=== PATIENT | male | born 1945 | race Caucasian/White ===

== ENCOUNTER → 2017-04-13 07:38 | Day surgery (SDC) | payer MEDICARE, OTHER ==
[~2017-04-13 07:38] MED LIST: Acetaminophen TAB* 325 MG PO PRN; Buffered Lidocaine 0.9% SYRIN* 5 ML/SYR SYRINGE INTRADERM ONE; Cyclopentolate 1% OPTH.SOL* 2 ML BTL ONE; Ketorolac 0.5% OPHTH (NF) 0.5 % 5 ML BTL ONE; Lidocaine 1% MPF* 2 ML VIAL ONE; Lidocaine 2% EPI 1:200000 MPF* 20 ML VIAL ONE; Midazolam* 1 MG/ML 2 ML VIAL (2 MG) ONE; Neomycin/Polymy/Dex OPTH.SUSP* MAXITROL 0.1% 5 ML ONE; Phenylephrine 2.5% OPTH.SOL* 2 ML BTL ONE; Povidone Iodine 5% OPTH* 30 ML BTL ONE; Proparacaine 0.5% OPHTH.SOL* 15 ML BTL ONE; acetaZOLAMIDE TAB* 250 MG ONE
[2017-04-13 10:27] VITALS: BP 141/67
--- NOTE | 2017-04-13 15:30 | OP ---
DATE OF OPERATION: 04/13/2017 - [facility] DATE OF : 1945. SURGEON: Lino Elkins M.D. PREOPERATIVE DIAGNOSIS: Cataract right eye. POSTOPERATIVE DIAGNOSIS: Cataract right eye. OPERATIVE PROCEDURE: Extracapsular cataract extraction with intraocular lens implant right eye. DESCRIPTION OF PROCEDURE: The patient was brought to the operating room after being given 1/2% Alcaine with epinephrine drops in the preoperative area. The eye was prepped and draped in the usual sterile fashion. Sterile drape and eyelid speculum were placed. Again, topical 1/2% Alcaine with epinephrine was given. A paracentesis incision was made at the 9 o'clock position with the No.75 blade. Clear cornea incision 2.2 x 2.2-mm was created at the 12 o'clock position starting at the anterior limbus using the 2.2-mm keratome. The anterior chamber was irrigated with 0.4 mL of 1% non-preservative intracameral lidocaine and filled with DisCoVisc. A capsulorrhexis was completed using the cystotome and the Utrata forceps. Hydrodissection was performed with balanced salt solution. The lens nucleus was removed with the Phacoemulsification handpiece without incident. Cortex was removed with the irrigation-aspiration handpiece. The capsular bag was re-inflated using DisCoVisc and an [id number] implant was inserted with the shooter. The irrigation-aspiration handpiece was used to remove all residual DisCoVisc. The eye was refilled with balanced salt solution and the wound checked and found to be watertight. Topical Maxitrol drops were given. [id number]/[facility] #: [id number] [facility]ENTER[facility]
== END | disposition home or self-care (01) ==
LOC: OREAST 07:38
PROVIDERS: ATTEND Specialist
DX: H25.811 Combined forms of age-related cataract, right eye (principal); H40.053 Ocular hypertension, bilateral; E11.3293 Type 2 diabetes mellitus with mild nonproliferative diabetic retinopathy without macular edema, bilateral; Z79.84 Long term (current) use of oral hypoglycemic drugs; I10 Essential (primary) hypertension
CPT/HCPCS: A9270-GY; J2250; V2632

== ENCOUNTER 2017-04-20 06:23 | Day surgery (SDC) | payer MEDICARE, OTHER ==
[~2017-04-20 06:23] MED LIST changes: -Cyclopentolate 1% OPTH.SOL* 2 ML BTL ONE; -Ketorolac 0.5% OPHTH (NF) 0.5 % 5 ML BTL ONE; -Lidocaine 1% MPF* 2 ML VIAL ONE; -Lidocaine 2% EPI 1:200000 MPF* 20 ML VIAL ONE; -Midazolam* 1 MG/ML 2 ML VIAL (2 MG) ONE; -Neomycin/Polymy/Dex OPTH.SUSP* MAXITROL 0.1% 5 ML ONE; -Phenylephrine 2.5% OPTH.SOL* 2 ML BTL ONE; -Povidone Iodine 5% OPTH* 30 ML BTL ONE; -Proparacaine 0.5% OPHTH.SOL* 15 ML BTL ONE; -acetaZOLAMIDE TAB* 250 MG ONE
[2017-04-20] MEDS ORDERED: Midazolam* 1 MG/ML 2 ML VIAL (2 MG) ONE ×2 (07:14→07:37)
[2017-04-20] MEDS ORDERED: Ketorolac 0.5% OPHTH (NF) 0.5 % 5 ML BTL ONE (07:32)
[2017-04-20] MEDS ORDERED: Povidone Iodine 5% OPTH* 30 ML BTL ONE (07:32)
[2017-04-20] MEDS ORDERED: Lidocaine 2% EPI 1:200000 MPF* 20 ML VIAL ONE (07:32)
[2017-04-20] MEDS ORDERED: Proparacaine 0.5% OPHTH.SOL* 15 ML BTL ONE (07:32)
[2017-04-20] MEDS ORDERED: Lidocaine 1% MPF* 2 ML VIAL ONE (07:32)
[2017-04-20] MEDS ORDERED: acetaZOLAMIDE TAB* 250 MG ONE (07:32)
[2017-04-20] MEDS ORDERED: Neomycin/Polymy/Dex OPTH.SUSP* MAXITROL 0.1% 5 ML ONE (07:32)
[2017-04-20] MEDS ORDERED: Cyclopentolate 1% OPTH.SOL* 2 ML BTL ONE (07:32)
[2017-04-20] MEDS ORDERED: Phenylephrine 2.5% OPTH.SOL* 2 ML BTL ONE (07:32)
[2017-04-20 07:56] VITALS: BP 134/57
--- NOTE | 2017-04-20 22:48 | OP ---
DATE OF OPERATION: 04/20/17 [facility] DATE OF : [birth year] SURGEON: Lino Elkins M.D. PREOPERATIVE DIAGNOSIS: Cataract, left eye. POSTOPERATIVE DIAGNOSIS: Cataract, left eye. OPERATIVE PROCEDURE: Extracapsular cataract extraction with intraocular lens implant, left eye. DESCRIPTION OF PROCEDURE: The patient was brought to the operating room after being given 1/2% Alcaine with epinephrine drops in the preoperative area. The eye was prepped and draped in the usual sterile fashion. Sterile drape and eyelid speculum were placed. Again, topical 1/2% Alcaine with epinephrine was given. A paracentesis incision was made at the 3 o'clock position with the No.75 blade. Clear cornea incision 2.2 x 2.2-mm was created at the 6 o'clock position starting at the anterior limbus using the 2.2-mm keratome. The anterior chamber was irrigated with 0.4 mL of 1% non-preservative intracameral lidocaine and filled with DisCoVisc. A capsulorrhexis was completed using the cystotome and the Utrata forceps. Hydrodissection was performed with balanced salt solution. The lens nucleus was removed with the Phacoemulsification handpiece without incident. Cortex was removed with the irrigation-aspiration handpiece. The capsular bag was re-inflated using DisCoVisc and an [id number] 16.5 implant was inserted with the shooter. The irrigation-aspiration handpiece was used to remove all residual DisCoVisc. The eye was refilled with balanced salt solution and the wound checked and found to be watertight. Topical Maxitrol drops were given. [id number]/[facility] #: [id number] [facility]
== END 2017-04-20 08:10 | disposition home or self-care (01) ==
LOC: OREAST 06:23
PROVIDERS: ATTEND Specialist
DX: H25.812 Combined forms of age-related cataract, left eye (principal); H40.053 Ocular hypertension, bilateral; E11.3293 Type 2 diabetes mellitus with mild nonproliferative diabetic retinopathy without macular edema, bilateral; N40.0 Benign prostatic hyperplasia without lower urinary tract symptoms; I10 Essential (primary) hypertension; Z79.84 Long term (current) use of oral hypoglycemic drugs; E78.5 Hyperlipidemia, unspecified
CPT/HCPCS: A9270-GY; J2250; V2632

== ENCOUNTER 2019-02-28 20:06 | Emergency (ER) | payer MEDICARE, OTHER ==
[2019-02-28] MEDS ORDERED: Lidocaine/Epineph/Tetraca SOL 4 ML BTL (LET solution) TOPICAL ONE (20:43)
[2019-02-28] MEDS ORDERED: Tetan/Diph/Pertus SYR(Tdap)* 0.5 ML SYR(BOOSTRIX) use SYR contains LATEX IM ONE (20:48)
[2019-02-28] MEDS ORDERED: Lidocaine 1% MPF ** 5 ML VIAL INJ ONE (20:48)
--- NOTE | 2019-02-28 20:51 | UC ---
HPI Wound/Suture Re-check - HPI Summary HPI Summary: PATIENT TRIPPED AND FELL AROUND NOON TODAY (8 HOURS AGO) STRIKING THE TOP OF HIS HEAD ON THE PORCH. SUSTAINED LACERATION TO THE TOP RIGHT OF HIS SCALP. WENT TO THE ER IN [place] AND HAD 8 SHAHIDA PLACED TO THE LACERATION. HE STATES THAT IT HAS BEEN OOZING AND BLOOD HAS BEEN RUNNING DOWN HIS CHEEK ALL DAY. HE DENIES ANY LOC. NO NAUSEA/VOMITING. NO VISUAL DISTURBANCES. NO DIZZINESS OR HEADACHE. HE TAKES AN 81 MG ASPIRIN DAILY. NO OTHER BLOOD THINNERS. UNKNOWN DATE OF LAST TETANUS. DID NOT RECEIVE ONE IN THE [place] ER. PT REPORTS THEY DID A CT SCAN OF HIS HEAD WHICH WAS UNREMARKABLE. - History Of Current Complaint Stated Complaint: HEAD LAC Time Seen by Provider: 02/28/19 20:17 Hx Obtained From: Patient Onset/Duration: Sudden Onset, Lasting Hours, Still Present Severity: Moderate - Allergies/Home Medications Allergies/Adverse Reactions: Allergies Allergy/AdvReac Type Severity Reaction Status Date / Time codeine Allergy Severe Nausea And Verified 02/28/19 21:14 Vomiting Home Medications: Home Medications Latanoprost 0.005%* [Xalatan 0.005%*] 1 drop BOTH EYES QPM 02/28/19 [History Confirmed 02/28/19] PMH/Surg Hx/FS Hx/Imm Hx Endocrine History: Diabetes Cardiovascular History: Hypertension - Surgical History Surgical History: Yes Surgery Procedure, Year, and Place: surgery on nose 2106. abdominal surgery more than 10 years ago - Family History Known Family History: Positive: Non-Contributory - Social History Alcohol Use: None Substance Use Type: None Smoking Status (MU): Never Smoked Tobacco Review of Systems All Other Systems Reviewed And Are Negative: Yes Constitutional: Positive: Negative Skin: Positive: Other - LACERATION Respiratory: Positive: Negative Cardiovascular: Positive: Negative Gastrointestinal: Positive: Negative Neurological: Positive: Negative Physical Exam Triage Information Reviewed: Yes Appearance: Well-Appearing, No Pain Distress, Well-Nourished Vital Signs Reviewed: Yes Eyes: Positive: Conjunctiva Clear ENT: Positive: Hearing grossly normal Neck: Positive: Supple Respiratory: Positive: No respiratory distress, No accessory muscle use Cardiovascular: Positive: Pulses Normal Musculoskeletal: Positive: No Edema Neurological: Positive: Alert Psychological: Positive: Age Appropriate Behavior Skin: Positive: Other - 6.5CM LINEAR LACERATION TOP OF SCALP WITH ACTIVE BLEEDING. 8 SHAHIDA. 1 APPEARS TO HAVE ONE SIDE BURIED WITHIN THE LACERATION. Procedures - Laceration/Wound Repair 1 Location: head - SCALP Description: Linear Anesthesia: Local, 1.0% Length, Depth and Shape: 6.5CM LONG, 3MM DEEP LINEAR LACERATION Betadine Prep?: No Irrigated w/ Saline (ccs): 250 Laceration/Wound Explored: clean Closure: Single Layer - 11 SIMPLE INTERRUPTED SUTURES Suture Type: Prolene - 5-0 Layer Closure?: No Sterile Dressing Applied?: Yes Course/Dx - Course Course Of Treatment: PATIENT ARRIVES ABOUT 8 HOURS AFTER HAVING 8 SHAHIDA PLACED TO A SCALP LACERATION IN THE [place] [facility] ROOM. HE STATES THE WOUND HAS BEEN OOZING AND BLEEDING ALL DAY. AFTER CLEANING THE WOUND IT WAS NOTED THAT ONE OF THE SHAHIDA HAD ONE SIDE BURIED WITHIN THE LACERATION AND THAT THE 2 SURROUNDING SHAHIDA WERE ASYMMETRICALLY PLACED WITH ONE SIDE VERY CLOSE TO THE LACERATION ITSELF. IT WAS ALSO DISCOVERED THAT THE SKIN EDGES WERE SIGNIFICANTLY OVERLAPPING WHICH EXPLAINS WHY HE DID NOT FORM AN ADEQUATE CLOT AND HAS BEEN CONTINUING TO BLEED OVER THE COURSE OF THE DAY. ALL 8 SHAHIDA WERE REMOVED WITHOUT DIFFICULTY. TIME OUT COMPLETE. LACERATION CLOSED WITH 11 SIMPLE INTERRUPTED SUTURES USING 5-0 PROLENE. SKIN EDGES WERE IN GOOD ALIGNMENT. HEMOSTASIS WAS ACHIEVED. STERILE DRESSING APPLIED BY RN. TDAP WAS BOOSTED PATIENT CANNOT REMEMBER THE DATE OF HIS LAST TETANUS SHOT AND HE STATES HE DID NOT GET ONE TODAY IN THE [place] ER. WOUND CARE AND FOLLOW-UP INSTRUCTIONS GIVEN TO THE PATIENT AND HIS NEIGHBOR WHO BROUGHT HIM IN. - Diagnosis Provider Diagnosis: Scalp laceration Discharge ED - Sign-Out/Discharge Documenting (check all that apply): Patient Departure All imaging exams completed and their final reports reviewed: No Studies - Discharge Plan Condition: Stable Disposition: HOME Patient Education Materials: Laceration (ED) Referrals: Jaxon Boone MD [Primary Care Provider] - If Needed Additional Instructions: THE 8 SHAHIDA WERE REMOVED AND YOUR LACERATION WAS CLOSED WITH 11 SUTURES. KEEP DRESSINGS IN PLACE AND DRY FOR THE FIRST 24 HRS. THEN YOU MAY REMOVE THE DRESSING AND GENTLY CLEANSE WITH SOAP AND WATER. PAT DRY AND RE-BANDAGE. APPLY THIN LAYER ANTIBIOTIC OINTMENT UNDER BANDAGE FOR FIRST 3-4 DAYS ONLY. I RECOMMEND AVOIDING NEOMYCIN CONTAINING PRODUCTS THEY CAN BE HIGHLY ALLERGENIC. CHANGE BANDAGE DAILY AND NEEDED IF IT BECOMES SOILED OR WET. SEEK FOLLOW-UP IF YOU DEVELOP SPREADING REDNESS OF THE SKIN, PURULENT DRAINAGE, FEVER, INCREASED PAIN OR ANY OTHER CONCERNING SYMPTOMS. RETURN TO HAVE YOUR ELEVEN SUTURES REMOVED IN 7-10 DAYS - Billing Disposition and Condition Condition: STABLE Disposition: Home
[2019-02-28 21:14] VITALS: BP 168/68
== END 2019-02-28 22:05 | disposition home or self-care (01) ==
LOC: UCEAST 20:06
DX: S01.01XA Laceration without foreign body of scalp, initial encounter (principal); I10 Essential (primary) hypertension; E11.9 Type 2 diabetes mellitus without complications; Z88.5 Allergy status to narcotic agent; Z79.82 Long term (current) use of aspirin; W01.198A Fall on same level from slipping, tripping and stumbling with subsequent striking against other object, initial encounter; Y92.9 Unspecified place or not applicable
CPT/HCPCS: 12002; 90715; 99211; G0463

== ENCOUNTER 2019-03-08 09:02 | Emergency (ER) | payer MEDICARE, OTHER ==
--- OUTSIDE RECORDS SUMMARY | 2019-03-08 09:15 | XMS REPORT | Continuity of Care Document ---
:1945 External Reference #:[id number] Author Name Susana Heard O.D. Address [address] [place] [address] Care Team Providers Name Role Phone Jaxon Boone M.D. 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 Onset: 10/29/2014 mellitus Combined form of senile cataract Karen Gilmore O.D. Onset: 10/29/2014 Open angle with borderline findings aKren Gilmore O.D. Onset: 10/29/2014 Ocular hypertension Karen Gilmore O.D. Onset: 10/29/2014 Type 2 diabetes mellitus Lino Elkins M.D. Onset: 04/29/2015 Type 2 diabetes mellitus with mild Lino Elkins M.D. Onset: 09/05/2015 nonproliferative diabetic retinopathy without macular edema Type 2 diabetes mellitus with mild Lino Elkins M.D. Onset: 03/09/2016 nonproliferative diabetic retinopathy without macular edema, bilateral Presence of intraocular lens Lino Elkins M.D. Onset: 04/21/2017 Bilateral primary open angle glaucoma Susana Heard O.D. Onset: 2018 Social History Type Date Description Comments Sex Unknown ETOH Use Denies alcohol use Tobacco Use Start: Unknown Patient has never smoked Recreational Drug Use Denies Drug Use Smoking Status Reviewed: 03/05/19 Patient has never smoked Allergies, Adverse Reactions, Alerts Active Allergies Reaction Severity Comments Date Codeine 10/29/2014 Medications Active Medications SIG Qnty Indications Ordering Provider Date Latanoprost 1 drop both eyes 10ml H40.1131 Susana Heard, 08/11/2018 0.005% every night O.D. Solution Metformin HCL Unknown 500mg Tablets Aspirin Unknown 81mg Chewtabs Lisinopril 1 by mouth every Unknown 5mg Tablets day Immunizations Description No Information Available Vital Signs Description No Information Available Results Description No Information Available Procedures Date Code Description Status 12/04/2018 02616 Est Patient Intermediate Exam Completed Medical Devices Description No Information Available Encounters Description No Information Available Assessments Date Code Description Provider 03/05/2019 H40.1131 Primary open-angle glaucoma, bilateral, Susana Heard O.D. mild stage 03/05/2019 E11.3293 Type 2 diabetes mellitus with mild Susana Heard O.D. nonproliferative diabetic retinopathy without macular edema, bilateral 03/05/2019 Z96.1 Presence of intraocular lens Susana Heard O.D. 12/04/2018 H40.1131 Primary open-angle glaucoma, bilateral, Susana Heard O.D. mild stage 12/04/2018 E11.9 Type 2 diabetes mellitus without Susana Heard O.D. complications 12/04/2018 Z96.1 Presence of intraocular lens Susana Heard O.D. Plan of Treatment 03/05/2019 - Susana Heard O.D.H40.1131 Primary open-angle glaucoma, bilateral, mild stageComments:Your glaucoma is stable at this time.Your eye pressure is within an acceptable range, and your testing does not show any Glaucoma related changes at this time. Please continue your treatment.Follow up: 4 Month Follow Up /Visual Field, 30-2 At your next visit, we are not planning to dilate your eyes. However, if you have any changes in your vision or new symptoms, there are certain situations that require us to dilate your eyes. If Dr. Heard requests any additional testing, that may require extratime. If you have any questions before your next appointment, please call our office at .E11.3293 Type 2 diabetes mellitus with mild nonproliferative diabetic retinopathy without macular edema, bilateralComments:Dr. Heard can detect diabetic changes in your eyes. Proper control of your diabetes is important for the health of your eyes. It is important that you keep all of your follow up appointments.Z96.1 Presence of intraocular lensComments:The artificial lens implants in both eyes appear to be stable at this time. Functional Status Description No Information Available Mental Status Description No Information Available Referrals Description No Information Available
[2019-03-08 09:18] VITALS: BP 147/60
--- NOTE | 2019-03-08 09:39 | UC ---
Skin Complaint HPI - HPI Summary HPI Summary: 73-year-old male comes in with a chief complaint of need for suture removal. On February 28, 2019 patient slipped and fell and had a laceration on his scalp. Initially had brenda in it but they Bleeding around the brenda therefore the brenda were removed and a total number of the 11 simple interrupted sutures were placed on the 6.5 cm long scalp laceration. Patient initially seen at [facility] and reported negative head CT from that visit. 11 simple interrupted sutures were placed here in our clinic. Patient feels well no fevers. Has not had any bleeding. - History of Current Complaint Chief Complaint: UCSkin Time Seen by Provider: 03/08/19 09:34 Stated Complaint: SUTURE REMOVAL Pain Intensity: 0 - Allergy/Home Medications Allergies/Adverse Reactions: Allergies Allergy/AdvReac Type Severity Reaction Status Date / Time codeine Allergy Severe Nausea And Verified 03/08/19 09:14 Vomiting PMH/Surg Hx/FS Hx/Imm Hx Previously Healthy: Yes Endocrine History: Diabetes Cardiovascular History: Hypertension - Surgical History Surgical History: Yes Surgery Procedure, Year, and Place: surgery on nose 2106. abdominal surgery more than 10 years ago - Family History Known Family History: Positive: Non-Contributory - Social History Alcohol Use: None Substance Use Type: None Smoking Status (MU): Never Smoked Tobacco Review of Systems All Other Systems Reviewed And Are Negative: Yes Constitutional: Positive: Negative Skin: Positive: Other - see hpi Eyes: Positive: Negative ENT: Positive: Negative Respiratory: Positive: Negative Cardiovascular: Positive: Negative Gastrointestinal: Positive: Negative Motor: Positive: Negative Neurovascular: Positive: Negative Musculoskeletal: Positive: Negative Neurological: Positive: Negative Psychological: Positive: Negative Is Patient Immunocompromised?: No Physical Exam Triage Information Reviewed: Yes Appearance: Well-Appearing, No Pain Distress, Well-Nourished Vital Signs: Initial Vital Signs Temp 99.2 F 03/08/19 09:15 Pulse 82 03/08/19 09:15 Resp 18 03/08/19 09:15 BP 147/60 03/08/19 09:15 Pulse Ox 98 03/08/19 09:15 Vital Signs Reviewed: Yes Eye Exam: Normal Eyes: Positive: Conjunctiva Clear Neck: Positive: Supple Respiratory: Positive: No respiratory distress Musculoskeletal: Positive: Strength Intact, ROM Intact Psychological: Positive: Age Appropriate Behavior Skin: Positive: Other - On the top of the head on the scalp there is a 6.5 healing laceration with a total number of [address] I removed all 11 sutures. There was some bleeding with removal of 2 of the sutures and the bleeding was stopped with direct pressure. No erythema no drainage no signs of infection. Dressing was placed by nursing. Course/Dx - Course Course Of Treatment: No evidence of any infection on examination. The small amount of bleeding that occurred when sutures were removed was stopped with direct pressure. Patient will use direct pressure if needed for any bleeding also get reevaluated if there is any signs of infection or any other questions or concerns. - Diagnoses Provider Diagnosis: Encounter for removal of sutures Discharge ED - Sign-Out/Discharge Documenting (check all that apply): Patient Departure All imaging exams completed and their final reports reviewed: No Studies - Discharge Plan Condition: Stable Disposition: HOME Patient Education Materials: Stitches Removal (ED) Referrals: Jaxon Boone MD [Primary Care Provider] - Additional Instructions: FOLLOW UP WITH YOUR DOCTOR IF NOT COMPLETELY IMPROVED. GET REEVALUATED SOONER IF NOT IMPROVED OR WORSE OR ANY QUESTIONS OR CONCERNS. - Billing Disposition and Condition Condition: STABLE Disposition: Home
== END 2019-03-08 09:52 | disposition home or self-care (01) ==
LOC: UCEAST 09:02
DX: Z48.02 Encounter for removal of sutures (principal); E11.9 Type 2 diabetes mellitus without complications; I10 Essential (primary) hypertension; Z88.5 Allergy status to narcotic agent

== ENCOUNTER 2022-07-08 11:28 | Inpatient (IN) ==
[2022-07-08] MEDS ORDERED: Iodixanol (CONTRAST) 320 MG/ML 100 ML SDV IV ONE (11:38)
[2022-07-08 12:06] LABS: ABS Basophils 0.1 10^3/uL (0.0-0.1); ABS Eosinophils 0.5 10^3/uL (0.0-0.5); ABS Lymphocytes 1.4 10^3/uL (1.0-4.8); ABS Monocytes 0.9 10^3/uL (0.0-1.1); Eosinophil % 6.8 %; Hematocrit 36.8 % (38-53); Hemoglobin 12.7 g/dL (13.2-16.3); Lymphocyte % 20.9 %; Mean Corpuscular Hemoglobin 31.5 pg (27-33); Mean Corpuscular Hgb Conc 34.5 g/dL (31-36); Mean Corpuscular Volume 91.2 fL (80-97); Mean Platelet Volume 7.2 fL (7.5-11.2); Platelet Count 350 10^3/uL (150-450); Red Blood Count 4.03 10^6/uL (4.06-5.63); White Blood Count 6.8 10^3/uL (3.6-10.2)
[2022-07-08 12:13] LABS: Activated Partial Thrombo Time 27.2 seconds (26.0-38.0); INR 1.01 (0.88-1.18)
[2022-07-08] MEDS ORDERED: Tetan/Diph/Pertus SYR(Tdap) 0.5 ML SYR(BOOSTRIX) use SYR contains LATEX IM ONE (12:40)
[2022-07-08] MEDS ORDERED: Lidocaine/Epineph/Tetraca GEL 3 ML GEL IN SYR TOPICAL ONE (12:40)
[2022-07-08 12:51] LABS: Albumin 4.1 g/dL (3.2-5.2); Albumin/Globulin Ratio 1.7 (1-3); Calcium 8.8 mg/dL (8.6-10.3); Creatinine, Serum 1.17 mg/dL (0.67-1.17); Globulin 2.4 g/dL (2-4); HDL Cholesterol 49.8 mg/dL; Potassium 5.5 mmol/L (3.5-5.0); Total Bilirubin 0.6 mg/dL (0.2-1.0); Total Protein 6.5 g/dL (6.4-8.9); eGFR CKD-EPI 63.8 (>60)
[2022-07-08] MEDS ORDERED: NS 0.9% 1000 ml BAG 1,000 ML IV ONE (12:59)
[2022-07-08] MEDS ORDERED: CALCIUM GLUCONATE 1GM/50ML NS 1 GM/50 ML BAG IV ONE (13:45)
[2022-07-08 15:24] LABS: TSH Ultra Thyroid Stim Horm 3.44 mcIU/mL (0.34-5.60)
[2022-07-08 15:26] LABS: Free T4 0.82 ng/dL (0.61-1.12)
[2022-07-08 17:43] LABS: Calcium 8.8 mg/dL (8.6-10.3); Creatinine, Serum 1.07 mg/dL (0.67-1.17); Magnesium 1.8 mg/dL (1.9-2.7); Potassium 4.7 mmol/L (3.5-5.0)
[2022-07-08] MEDS ORDERED: Dextrose 50% Syringe 50 ml 25 GM/50 ML SYRINGE IV PUSH PRN (19:11)
[2022-07-09 04:39] LABS: ABS Eosinophils 0.2 10^3/uL (0.0-0.5); ABS Lymphocytes 1.5 10^3/uL (1.0-4.8); ABS Monocytes 1.3 10^3/uL (0.0-1.1); ABS Neutrophils 6.4 10^3/uL (1.5-7.6); Eosinophil % 1.7 %; Hematocrit 35.2 % (38-53); Hemoglobin 12.1 g/dL (13.2-16.3); Lymphocyte % 15.7 %; Mean Corpuscular Hemoglobin 31.2 pg (27-33); Mean Corpuscular Hgb Conc 34.4 g/dL (31-36); Mean Corpuscular Volume 90.7 fL (80-97); Platelet Count 356 10^3/uL (150-450); Red Blood Count 3.88 10^6/uL (4.06-5.63); White Blood Count 9.3 10^3/uL (3.6-10.2)
[2022-07-09 05:06] LABS: Albumin 3.6 g/dL (3.2-5.2); Albumin/Globulin Ratio 1.5 (1-3); Calcium 8.6 mg/dL (8.6-10.3); Creatinine, Serum 1.12 mg/dL (0.67-1.17); Globulin 2.4 g/dL (2-4); Magnesium 1.8 mg/dL (1.9-2.7); Potassium 4.4 mmol/L (3.5-5.0); Total Bilirubin 0.9 mg/dL (0.2-1.0); eGFR CKD-EPI 67.2 (>60)
[2022-07-09 05:15] LABS: Urine Benzodiazepine Screen None Detected (None Detect); Urine Cannabinoids Screen None Detected (None Detect); Urine Opiates Screen None Detected (None Detect)
[2022-07-09] MEDS ORDERED: Magnesium Sulfate 2 gm BAG 2 GM/50 ML BAG IVPB ONE (06:51)
[2022-07-09] MEDS ORDERED: ceFAZolin SYR FLUSH 1 GM/10 ML for pocket flush (cardiology) FLUSH ONE (13:55)
[2022-07-09] MEDS ORDERED: ceFAZolin 2 GM in NS PREMIX 2 GM/100 ML BAG IVPB ONE (13:55)
[2022-07-09] MEDS ORDERED: ceFAZolin 2 GM/50 ML BAG IV ONE (13:55)
[2022-07-09] MEDS ORDERED: NS 0.9% 1000 ml BAG 1,000 ML IV SCH (14:00)
[2022-07-09] MEDS ORDERED: Lidocaine 1% VIAL 10 MG/ML VIAL 30 ML ONE (17:45)
[2022-07-09] MEDS ORDERED: fentaNYL 100 mcg/2 ml 50 MCG/ML VIAL ONE (17:58)
[2022-07-09] MEDS ORDERED: Midazolam 5 mg/5 ml VIAL 1 mg/ml 5 ml VIAL (5 mg) ONE (17:58)
[2022-07-09] MEDS ORDERED: Iohexol 300 (CONTRAST) 10 ML SDV ONE (17:59)
[2022-07-09] MEDS ORDERED: Iohexol 180 (CONTRAST) 10 ML SDV IV ONE (18:36)
[2022-07-09] MEDS ORDERED: Haloperidol 5 mg/ml SDV IV/IM 5 MG/ML AMP IV SLOW PU ONE (20:30)
[2022-07-10] MEDS: ceFAZolin 1 GM ADVAN 1 GM in NS 0.9% 50 ML 50 ML IVPB SCH ×3 (02:48→17:27)
[2022-07-10 04:33] LABS: ABS Basophils 0.1 10^3/uL (0.0-0.1); ABS Eosinophils 0.2 10^3/uL (0.0-0.5); ABS Lymphocytes 1.2 10^3/uL (1.0-4.8); ABS Monocytes 1.3 10^3/uL (0.0-1.1); ABS Neutrophils 5.9 10^3/uL (1.5-7.6); Eosinophil % 2.5 %; Hematocrit 35.2 % (38-53); Hemoglobin 12.2 g/dL (13.2-16.3); Lymphocyte % 13.7 %; Mean Corpuscular Hemoglobin 31.2 pg (27-33); Mean Corpuscular Hgb Conc 34.7 g/dL (31-36); Mean Corpuscular Volume 89.7 fL (80-97); Platelet Count 351 10^3/uL (150-450); Red Blood Count 3.92 10^6/uL (4.06-5.63); Red Cell Distribution Width 13.1 % (12-17); White Blood Count 8.7 10^3/uL (3.6-10.2)
[2022-07-10 05:22] LABS: Calcium 8.8 mg/dL (8.6-10.3); Creatinine, Serum 1.13 mg/dL (0.67-1.17); Magnesium 1.8 mg/dL (1.9-2.7); Phosphorus 3.1 mg/dL (2.5-5.0); Potassium 4.2 mmol/L (3.5-5.0); eGFR CKD-EPI 66.5 (>60)
[2022-07-10] MEDS ORDERED: Magnesium Sulfate IV 3 GM in NS 0.9% 100 ml BAG 100 ML IVPB ONE (06:53)
[2022-07-10] MEDS: CMCS:Brimonidine/Timolol 0.2%/0.5% OPTH(NF) SOL 5 ML BOTH EYES SCH ×2 (13:10→19:38)
[2022-07-10] MEDS: Latanoprost 0.005% 2.5 ml BTL BOTH EYES SCH (19:42)
[2022-07-11 06:14] LABS: ABS Basophils 0.1 10^3/uL (0.0-0.1); ABS Eosinophils 0.4 10^3/uL (0.0-0.5); ABS Lymphocytes 1.5 10^3/uL (1.0-4.8); ABS Monocytes 1.3 10^3/uL (0.0-1.1); ABS Neutrophils 5.6 10^3/uL (1.5-7.6); ABS Nucleated RBC 0.01 10^3/ul; Eosinophil % 4.7 %; Hematocrit 33.2 % (38-53); Hemoglobin 11.6 g/dL (13.2-16.3); Lymphocyte % 16.5 %; Mean Corpuscular Hemoglobin 31.3 pg (27-33); Mean Corpuscular Volume 89.4 fL (80-97); Mean Platelet Volume 7.1 fL (7.5-11.2); Nucleated Red Blood Cells % 0.1 /100 WBC (0.0-0.4); Platelet Count 312 10^3/uL (150-450); Red Blood Count 3.72 10^6/uL (4.06-5.63); Red Cell Distribution Width 12.7 % (12-17); White Blood Count 8.8 10^3/uL (3.6-10.2)
[2022-07-11 06:31] LABS: Calcium 8.5 mg/dL (8.6-10.3); Creatinine, Serum 0.98 mg/dL (0.67-1.17); Phosphorus 3.2 mg/dL (2.5-5.0); Potassium 4.4 mmol/L (3.5-5.0); eGFR CKD-EPI 78.9 (>60)
[2022-07-11] MEDS: CMCS:Brimonidine/Timolol 0.2%/0.5% OPTH(NF) SOL 5 ML BOTH EYES SCH ×2 (08:37→20:37)
[2022-07-11] MEDS: Enoxaparin 40 MG/0.4 ML SYR SUBCUT SCH (20:35)
[2022-07-11] MEDS: Latanoprost 0.005% 2.5 ml BTL BOTH EYES SCH (20:37)
[2022-07-12 06:14] LABS: ABS Basophils 0.1 10^3/uL (0.0-0.1); ABS Eosinophils 0.5 10^3/uL (0.0-0.5); ABS Lymphocytes 1.6 10^3/uL (1.0-4.8); ABS Monocytes 1.1 10^3/uL (0.0-1.1); ABS Neutrophils 4.6 10^3/uL (1.5-7.6); Eosinophil % 6.6 %; Hematocrit 34.4 % (38-53); Hemoglobin 11.9 g/dL (13.2-16.3); Lymphocyte % 20.4 %; Mean Corpuscular Hgb Conc 34.5 g/dL (31-36); Mean Corpuscular Volume 89.8 fL (80-97); Mean Platelet Volume 7.2 fL (7.5-11.2); Nucleated Red Blood Cells % 0.1 /100 WBC (0.0-0.4); Platelet Count 296 10^3/uL (150-450); Red Blood Count 3.83 10^6/uL (4.06-5.63); Red Cell Distribution Width 12.9 % (12-17); White Blood Count 7.8 10^3/uL (3.6-10.2)
[2022-07-12 06:40] LABS: Calcium 8.6 mg/dL (8.6-10.3); Creatinine, Serum 1.23 mg/dL (0.67-1.17); Phosphorus 3.7 mg/dL (2.5-5.0); Potassium 4.3 mmol/L (3.5-5.0); eGFR CKD-EPI 60.1 (>60)
[2022-07-12] MEDS: CMCS:Brimonidine/Timolol 0.2%/0.5% OPTH(NF) SOL 5 ML BOTH EYES SCH ×2 (09:13→20:44)
[2022-07-12] MEDS: Enoxaparin 40 MG/0.4 ML SYR SUBCUT SCH (20:43)
[2022-07-12] MEDS: Latanoprost 0.005% 2.5 ml BTL BOTH EYES SCH (20:44)
[2022-07-13] MEDS: CMCS:Brimonidine/Timolol 0.2%/0.5% OPTH(NF) SOL 5 ML BOTH EYES SCH (08:24)
[2022-07-13] MEDS ORDERED: Magnesium Hydroxide LIQ 30 ML UDC PO PRN (09:14)
[2022-07-13 09:52] VITALS: BP 99/52
== END 2022-07-13 13:08 | DRG 242 ==
LOC: ED 11:28 → EDHOLD 14:39 → SUATTDRO 14:39 → ICU 15:19 → MEDTELE 07-11 15:20
PROVIDERS: ADMIT Internal Medicine; ATTEND Hospitalist